=== PATIENT | female | born 1995 | race Caucasian/White ===

== ENCOUNTER 2024-02-05 07:20 | Inpatient (IN) | payer OTHER ==
[~2024-02-05] VITALS: Ht 167.6 cm; Wt 83.9 kg
[2024-02-05] MEDS ORDERED: CALCIUM CARBONATE 500 MG CHEW PO PRN (07:30)
[2024-02-05] MEDS ORDERED: LACTATED RINGER'S 1,000 ML IV SCH (07:30)
[2024-02-05] MEDS ORDERED: MAGNESIUM HYDROXIDE/AL HYDROX 30 ML CUP PO PRN (07:30)
[2024-02-05] MEDS ORDERED: OXYTOCIN/DEXTROSE 5% 20 UNITS/100 ML BAG IV SCH (08:30)
[2024-02-05 08:33] LABS: HEMATOCRIT 37.9 % (35.0-50.0); HEMOGLOBIN 13.1 g/dL (12.0-18.0); MCH 31.4 (27-36); MCHC 34.6 g/dl (30-36); MCV 90.8 fl (81-99); PLATELET COUNT 148 K/uL (140-440); RBC 4.18 M/ul (4.3-5.7); RDW 14.8 (10.5-15.0)
[2024-02-05 09:13] LABS: ABO B; ANTIBODY SCREEN NEGATIVE; RH POSITIVE
[2024-02-05 09:46] LABS: AMPHETAMINES, URINE NEGATIVE (NEGATIVE); BARBITURATES, URINE NEGATIVE (NEGATIVE); BENZODIAZEPINE, URINE NEGATIVE (NEGATIVE); BUPRENORPHINE, URINE NEGATIVE (NEGATIVE); CANNABINOID, URINE NEGATIVE (NEGATIVE); COCAINE, URINE NEGATIVE (NEGATIVE); ECSTASY, URINE NEGATIVE (NEGATIVE); FENTANYL, URINE NEGATIVE (NEGATIVE); METHADONE, URINE NEGATIVE (NEGATIVE); OPIATES, URINE NEGATIVE (NEGATIVE); OXYCODONE, URINE NEGATIVE (NEGATIVE); PHENCYCLIDINE, URINE NEGATIVE (NEGATIVE)
[2024-02-05] MEDS ORDERED: LIDOCAINE HCL 1% 30 ML SDV INJ ONE (10:37)
[2024-02-05] MEDS ORDERED: ondansetron HCL 4 MG/2 ML VIAL IV ONE (12:15)
[2024-02-05] MEDS ORDERED: ROPIVACAINE 0.2% 200 ML BAG ONE (12:27)
[2024-02-05] MEDS ORDERED: ePHEDrine sulfate 5 MG/ML SYRINGE IV PRN (12:30)
[2024-02-05] MEDS ORDERED: LACTATED RINGER'S 500 ML IV PRN (12:30)
[2024-02-05] MEDS ORDERED: ROPIVACAINE 0.2% 200 ML BAG EPIDURAL SCH (12:30)
[2024-02-05] MEDS ORDERED: LACTATED RINGER'S 2,000 ML IV ONE (12:30)
[2024-02-05] MEDS ORDERED: ondansetron HCL 4 MG/2 ML VIAL IV PRN (22:30)
[2024-02-05] MEDS ORDERED: diphenhydrAMINE HCL 50 MG/ML VIAL IV ONE (23:45)
[2024-02-06] MEDS ORDERED: diphenhydrAMINE HCL 50 MG/ML VIAL IV ONE (00:15)
[2024-02-06] MEDS ORDERED: OXYTOCIN/0.9 % SODIUM CHLORIDE 500 ML IV SCH ×2 (02:00→08:30)
[2024-02-06] MEDS ORDERED: LIDOCAINE HCL 2% 5 ML SDV ONE (02:12)
[2024-02-06] MEDS ORDERED: dexmedeTOMIDine HCl 200 MCG/2 ML VIAL ONE (02:12)
[2024-02-06] MEDS ORDERED: SODIUM CHLORIDE 0.9% 20 ML IV ONE (02:12)
[2024-02-06] MEDS ORDERED: ACETAMINOPHEN 500 MG TAB PO PRN (04:45)
[2024-02-06] MEDS ORDERED: ondansetron HCL 4 MG/2 ML VIAL ONE (05:28)
[2024-02-06] MEDS ORDERED: OXYTOCIN/DEXTROSE 5% 20 UNITS/100 ML BAG IV ONE (06:00)
[2024-02-06] MEDS ORDERED: OXYCODONE/APAP 5/325 TAB PO PRN (08:30)
[2024-02-06] MEDS ORDERED: IBUPROFEN 600 MG TAB PO PRN (08:30)
[2024-02-06] MEDS ORDERED: WITCH HAZEL/GLYCERIN 1 EA PAD TOP PRN (08:30)
[2024-02-06] MEDS ORDERED: MAGNESIUM HYDROXIDE 30 ML UDC PO PRN (08:30)
[2024-02-06] MEDS ORDERED: BENZOCAINE 60 ML AEROSOL TOP PRN (08:30)
[2024-02-06] MEDS ORDERED: CALCIUM CARBONATE 500 MG CHEW PO PRN (08:30)
[2024-02-06] MEDS ORDERED: OXYCODONE HCL 5 MG TAB PO PRN (08:30)
[2024-02-06] MEDS ORDERED: MAGNESIUM HYDROXIDE/AL HYDROX 30 ML CUP PO PRN (08:30)
[2024-02-06] MEDS ORDERED: HYDROCODONE/ACETA 5/325 TAB PO PRN (08:30)
[2024-02-06] MEDS ORDERED: HYDROCORTISONE ACETATE 25 MG SUPP PR PRN (08:30)
[2024-02-06] MEDS ORDERED: ACETAMINOPHEN 325 MG TAB PO PRN (08:30)
[2024-02-06] MEDS ORDERED: SENNOSIDES/DOCUSATE 1 EA TAB PO SCH (09:00)
[2024-02-07 05:24] LABS: HEMOGLOBIN 10.5 g/dL (12.0-18.0); MCH 31.1 (27-36); MCHC 33.8 g/dl (30-36); MCV 92.1 fl (81-99); RBC 3.37 M/ul (4.3-5.7); RDW 14.8 (10.5-15.0)
--- NOTE | 2024-02-07 08:09 | PR ---
[facility] [address] [address] [place], [place] [address] Signed PP Progress Notes Datetime Report Generated by CPN: 02/07/2024 08:09 SUBJECTIVE: [id number] Pain: Within Normal Limits Flatus: Yes Bowel Movement: No Vital Signs: [id number] Vital Signs: Reviewed; Within Normal Limits Cardiovascular: Normal Respiratory: Normal Abdomen/Uterus: Normal Lochia: Normal Vulva/Perineum: Not Done Breasts: Not Done CVA Tenderness: Normal Extremities: Normal Incision: Not Applicable Progress: Normal Exam Comments: Fundus firm U-2 nontender IMPRESSION/PLAN/PROCEDURES: [id number] Impression: Normal Progression Plan: Continue Present Management Progress Notes: Pt seen and examined. Doing well. Ambulating, voiding, and tolerating full diet. Pain and lochia minimal. well. Signing Physician: Jordan Arteaga DO Copies: ~ *Electronically Signed* 02/07/24 0809 JORDAN ARTEAGA (JOSEPH) DO PATIENT NAME: MUSTAPHA RUSSELL PROGRESS NOTE DATE OF : 95 PHYSICIAN: JORDAN ARTEAGA (JOSEPH) DO RPT #: [id number] REPORT IS CONFIDENTIAL AND NOT TO BE RELEASED WITHOUT AUTHORIZATION
--- NOTE | 2024-02-08 07:21 | PR ---
[facility] [facility] [address] [facility] [place], [place] [address] Signed PP Progress Notes Datetime Report Generated by CPN: 02/08/2024 07:21 SUBJECTIVE: [id number] Pain: Within Normal Limits Nausea/Vomiting: Denies Flatus: Yes Bowel Movement: No Vital Signs: [id number] Vital Signs: Reviewed; Within Normal Limits EXAM: Ongoing Cardiovascular: Normal Respiratory: Normal Abdomen/Uterus: Normal Lochia: Normal Vulva/Perineum: Not Done Breasts: Not Done CVA Tenderness: Normal Extremities: Normal Incision: Not Applicable Progress: Normal Exam Comments: Fundus firm U-2 nontender IMPRESSION/PLAN/PROCEDURES: [id number] Impression: Normal Progression Plan: Discharge Progress Notes: Pt seen and examined. Doing well. Ambulating, voiding, and tolerating full diet. Signing Physician: Jordan Arteaga DO Copies: ~ *Electronically Signed* 02/08/24 0721 JORDAN ARTEAGA (JOSEPH) DO PATIENT NAME: MUSTAPHA RUSSELL PROGRESS NOTE DATE OF : 95 PHYSICIAN: JORDAN ARTEAGA (JOSEPH) DO RPT #: [id number] REPORT IS CONFIDENTIAL AND NOT TO BE RELEASED WITHOUT AUTHORIZATION
== END 2024-02-08 13:35 | disposition home or self-care (01) | DRG 807 ==
LOC: FBC 07:20 → EDSTATUS 02-08 10:00 → US 02-08 10:00 → FBC 02-08 13:35
PROVIDERS: ADMIT Obstetrics & Gynecology; ATTEND Obstetrics & Gynecology
PROC: 10E0XZZ Delivery of Products of Conception, External Approach (ICD-10-PCS; principal; 2024-02-06)
PROC: 0KQM0ZZ Repair Perineum Muscle, Open Approach (ICD-10-PCS; 2024-02-06)
PROC: 3E0R3BZ Introduction of Anesthetic Agent into Spinal Canal, Percutaneous Approach (ICD-10-PCS; 2024-02-06)
PROC: 00HU33Z Insertion of Infusion Device into Spinal Canal, Percutaneous Approach (ICD-10-PCS; 2024-02-06)
PROC: 10907ZC Drainage of Amniotic Fluid, Therapeutic from Products of Conception, Via Natural or Artificial Opening (ICD-10-PCS; 2024-02-06)
DX: O30.043 Twin pregnancy, dichorionic/diamniotic, third trimester (principal); Z37.2 Twins, both liveborn; Z3A.38 38 weeks gestation of pregnancy; O70.1 Second degree perineal laceration during delivery
CPT/HCPCS: 01960; 36415; 80307; 85027; 85060; 86850; 86900; 86901; A9270; J1200; J2001; J2405; J2590; J7121